=== PATIENT | female | born 1955 | race Caucasian/White ===

== ENCOUNTER → 2019-11-03 15:13 | Outpatient (BNVA) | payer MEDICARE, MEDICAID, SELFPAY | PROVIDERS: Family Provider Family Medicine; PCP Family Medicine; Visit Provider Podiatrist Foot & Ankle Surgery | DX: S99.921A Unspecified injury of right foot, initial encounter (principal); X58.XXXA Exposure to other specified factors, initial encounter; M20.41 Other hammer toe(s) (acquired), right foot | CPT/HCPCS: 73630 ==

== ENCOUNTER 2020-02-02 12:33 | Outpatient (CLI) | payer MEDICARE, MEDICAID, SELFPAY ==
--- NOTE | 2020-02-02 12:41 | XRR_ITS ---
PROCEDURE INFORMATION: Exam: XR Left Hip with Pelvis when Performed Exam date and time: 02/02/2020 12:43 PM Age: 64 years old Clinical indication: Hip pain; Left hip; Additional info: Left hip pain TECHNIQUE: Imaging protocol: XR Left hip with pelvis when performed. Views: 2 or 3 views. COMPARISON: No relevant prior studies available. FINDINGS: Bones/joints: No significant joint space narrowing. Femoral head contains normal round. Mild degenerative bony overgrowth greater trochanter, chronic. Soft tissues: Unremarkable. XR/XR hip LT 2-3V wo/w pel* [id number] IMPRESSION: No acute findings. Mild greater trochanter degenerative changes.
--- NOTE | 2020-02-02 12:41 | XRR_ITS ---
PROCEDURE INFORMATION: Exam: XR Left Knee Exam date and time: 02/02/2020 1:07 PM Age: 64 years old Clinical indication: Pain; Knee; Left; Additional info: Acute pain of left knee TECHNIQUE: Imaging protocol: XR Left knee. Views: 1 or 2 views. COMPARISON: MRI Knee w/o LEFT* [id number] 03/13/2018 3:18 PM FINDINGS: Bones/joints: No significant joint space narrowing. Mild tibial spine degenerative overgrowth. Superior patellar osteophyte. Soft tissues: Normal. XR/XR knee LT 1-2V [id number] IMPRESSION: Mild degenerative changes.
== END 2020-02-02 12:34 | disposition home or self-care (01) ==
LOC: RAD 12:38
PROVIDERS: PCP Family Medicine; Visit Provider Nurse Practitioner
DX: M25.552 Pain in left hip (principal); M25.562 Pain in left knee
CPT/HCPCS: 73502; 73560

== ENCOUNTER 2020-12-05 11:12 | Outpatient (CLI) | payer MEDICARE, MEDICAID, SELFPAY ==
--- NOTE | 2020-12-05 11:19 | XR_ITS ---
WS: [id number] LEFT FOOT: 3 VIEW(S) TECHNIQUE: AP, oblique and lateral. HISTORY: PAIN IN LEFT FOOT COMPARISON: None available. No acute fracture or dislocation. Severe narrowing with hypertrophic bone formation at the first metatarsophalangeal joint. Marked hype rtrophic bone formation with complete loss of the joint space. Erosions involving both sides of the f irst MTP joint. There is a single screw in the first metatarsal head. Prior ankylosis and hardware involving the second and third phalanges. Moderate size calcaneal spur. XR/XR foot LT min 3V* [id number] IMPRESSION: 1. Severe hypertrophic bone formation with loss of joint space at the first me tatarsophalangeal joint. 2. No acute fracture.
--- NOTE | 2020-12-05 11:19 | XR_ITS ---
WS: [id number] RIGHT HAND: 3 VIEW(S) TECHNIQUE: PA, oblique and lateral. HISTORY: PAIN IN RIGHT FINGER(S) THUMB COMPARISON: 04/13/2016 No acute fracture or dislocation. Severe interphalangeal joint space narrowing. Hypertrophic bone formation and joint space narrowing g reatest involving the distal interphalangeal joints. No erosions. Mild gullwing deformity involving t he second through fourth interphalangeal joints. Moderate osteoarthritis at the first CMC joint. Mild periostitis involving the phalanges, greatest involving the proximal fifth phalanx. XR/XR hand RT min 3V* [id number] IMPRESSION: 1. Advanced changes of interphalangeal joint space narrowing with gullwing def ormity. Consider advanced osteoarthritis and also psoriatic and erosive arthrit is. 2. No fracture.
== END 2020-12-05 11:13 | disposition home or self-care (01) ==
PROVIDERS: PCP Family Medicine; Visit Provider Nurse Practitioner Family
DX: M79.672 Pain in left foot (principal)
CPT/HCPCS: 73130; 73630

== ENCOUNTER → 2021-02-09 12:44 | Outpatient (BNVA) | payer MEDICARE, MEDICAID, SELFPAY | PROVIDERS: PCP Family Medicine; Visit Provider Internal Medicine | DX: M19.90 Unspecified osteoarthritis, unspecified site (principal); R21 Rash and other nonspecific skin eruption; Z11.59 Encounter for screening for other viral diseases; Z11.1 Encounter for screening for respiratory tuberculosis; Z79.899 Other long term (current) drug therapy | CPT/HCPCS: 99204 ==

== ENCOUNTER 2021-02-09 14:18 | Outpatient (CLI) | payer MEDICARE, MEDICAID, SELFPAY ==
--- NOTE | 2021-02-09 14:35 | XR_ITS ---
WS: [id number] Sacroiliac joints, 3 views, 02/09/2021 Clinical Data: L40.9 - Psoriasis, unspecified Comparison: None. Findings: The SI joints are normal in width. No erosion, sclerosis or destruction is seen. There are no fractur es or dislocations. The adjacent visualized pelvis and hips are unremarkable. XR/XR sacroiliac jts m 3V [id number] Impression: Negative SI joints.
[2021-02-09 15:50] LABS: Basophils # 0.1 10^3/uL (0.0-0.1); Basophils % 0.6 %; Eosinophils # 0.2 10^3/uL (0.0-0.8); Eosinophils % 1.6 %; Hemoglobin 14.9 g/dL (11.5-15.3); Lymphocytes # 3.3 10^3/uL (0.8-4.8); Lymphocytes % 32.8 %; Mean Corpuscular HGB Conc 32.4 g/dL (30.0-36.0); Mean Corpuscular Hemoglobin 28.9 pg (28.0-34.0); Mean Corpuscular Volume 89.3 fl (81-99); Mean Platelet Volume 10.8 fL (7.4-10.4); Monocytes # 0.9 10^3/uL (0.2-0.9); Monocytes % 8.4 %; Neutrophils % 56.3 %; Nucleated Red Blood Cells % 0 %; Platelet Count 258 10^3/cmm (130-400); Red Blood Count 5.15 10^6/uL (4.1-5.3); Red Cell Distribution Width 12.4 % (12.1-15.1); White Blood Count 10.1 10^3/uL (4.0-10.0)
[2021-02-09 16:24] LABS: Erythrocyte Sedimentation Rate 13 mm/hr (0-15)
[2021-02-09 16:42] LABS: C Reactive Protein 2.3 mg/L (0.0-4.9); Ferritin 74 ng/mL (15-150); Iron 59 ug/dL (37-145); Percent Saturation 16.5 % (20-50); Total Iron Binding Capacity 356 mcg/dl; Unsaturated Iron Binding 297 ug/dL (112-347)
[2021-02-09 16:55] LABS: Vitamin B12 390 pg/mL (232-1245)
[2021-02-09 16:57] LABS: Hepatitis B Core AB, Total Non-Reactive (Nonreactive); Hepatitis B Surface Antigen Non-Reactive (Nonreactive); Hepatitis C Virus Antibody Non-Reactive (Nonreactive)
[2021-02-09 21:15] LABS: Folate Level 4.9 ng/mL (4.8-37.3)
[2021-02-11 16:18] LABS: Quantiferon Mitogen >10.00 IU/mL; Quantiferon Nil 0.02 IU/mL; Quantiferon Plus TB1 0.01 IU/mL; Quantiferon Plus TB2 0.04 IU/mL; Quantiferon TB Gold NEGATIVE (NEGATIVE)
[2021-02-13 14:42] LABS: Cyclic Citrullinated Peptide <16 UNITS
== END 2021-02-09 14:19 | disposition home or self-care (01) ==
PROVIDERS: PCP Family Medicine; Visit Provider Internal Medicine
DX: L40.9 Psoriasis, unspecified (principal); M19.90 Unspecified osteoarthritis, unspecified site; D64.9 Anemia, unspecified; Z11.59 Encounter for screening for other viral diseases; Z11.1 Encounter for screening for respiratory tuberculosis
CPT/HCPCS: 36415; 72202; 82607; 82728; 82746; 83540; 83550; 85025; 85651; 86140; 86431; 86480; 86704; 86803; 87340

== ENCOUNTER → 2021-06-05 14:47 | Outpatient (BNVA) | payer MEDICARE, MEDICAID, SELFPAY | PROVIDERS: PCP Family Medicine; Visit Provider Internal Medicine | DX: M19.90 Unspecified osteoarthritis, unspecified site (principal); Z79.1 Long term (current) use of non-steroidal anti-inflammatories (NSAID) | CPT/HCPCS: 99213 ==

== ENCOUNTER 2022-04-03 07:13 | Emergency (ER) | payer MEDICARE, MEDICAID, SELFPAY ==
[2022-04-03 07:14] VITALS: BP 144/94; PULSE 70; RESP 16; TEMP 36.6; O2SAT 100; BMI 27.4
--- NOTE | 2022-04-03 07:16 | ECG_ITS ---
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 Measurements Intervals [place] Rate: 58 P: 75 [place]: 129 QRS: 55 QRSD: 114 T: 64 QT: 465 QTc: 459 Interpretive Statements SINUS BRADYCARDIA MODERATE INTRAVENTRICULAR CONDUCTION DELAY [110+ ms QRS DURATION] No previous ECG available for comparison Electronically Signed On 04-04-2022 8:28:34 CDT by Navid Montemayor M.D. [email or web address]
[2022-04-03 07:17] VITALS: BP 158/76; PULSE 51; O2SAT 94
--- NOTE | 2022-04-03 07:17 | W.ED.ABDPA2 ---
HPI - Abdominal Pain General: Chief Complaint: Abdominal Pain Stated Complaint: ABDOMINAL PAIN Time Seen by Provider: 04/03/22 07:15 Source: patient Mode of arrival: EMS History of Present Illness: 66-year-old female presents emergency room complaining of right lower quadrant pain that began this morning around 3 AM while she was having a bowel movement. Prior to that she had been fine she has been very nauseous she denies any hematochezia melena hematemesis or coffee-ground emesis. No dysuria urgency or frequency states she has chronic hematuria has not noticed any significant gross hematuria. No history of nephrolithiasis. Pain disproportionate to exam. MD elicited complaint: abdominal pain Pertinent past history: none Onset (ago): minute(s) Pain Consistency: constant Location: RLQ Severity: severe Quality: cramping and stabbing Radiation: none Migration to: no migration Exacerbating factors: nothing Relieving factors: nothing Associated Symptoms: Reports GI cramping and nausea; Denies anorexia, belching, bloating, change in bowel habits, change in stool character, chills, coffee ground emesis, constipation, diarrhea, dyspepsia, dysuria, excessive flatus, fever(s), heartburn, hematochezia, hematuria, hematemesis, fecal incontinence, loose stools, melena, poor appetite, syncope and vomiting Review of Systems Const: Denies: fever(s), chills, fatigue or malaise ENMT: Denies: throat pain, ear or mastoid pain, nasal discharge or nasal congestion Card: Denies: syncope Resp: Denies: dyspnea, productive cough or non-productive cough GI: Reports: abdominal pain, nausea and GI cramping; Denies: vomiting, hematemesis, coffee ground emesis, heartburn, diarrhea, constipation, bloating, belching, excessive flatus, fecal incontinence, change in bowel habits, change in stool character, hematochezia or melena : Denies: flank pain, difficulty voiding, dysuria, urinary frequency, urinary urgency or hematuria Skin/Breast: Denies: rash or pruritus PFSH ED PFSH: Medical History Joint pain Osteoarthritis Family History Father CHF (congestive heart failure) Cancer MELANOMA Social History Smoking and tobacco status: never smoked Alcohol intake: never Current occupational status: disabled History of recent travel: No Physical Exam Const: GENERAL APPEARANCE: cooperative and comfortable ORIENTATION/CONSCIOUSNESS: Yes awake, Yes oriented to person, Yes oriented to place and Yes oriented to time HENMT: COMMON NORMALS: normocephalic, atraumatic and hearing grossly normal bilaterally HEAD & SCALP: normocephalic and atraumatic Resp: COMMON NORMALS: normal respiratory effort, No retractions, No use of accessory muscles and clear to auscultation bilaterally AUSCULTATION: clear to auscultation bilaterally Cardio: COMMON NORMALS: regular rate, regular rhythm and No murmurs present (Cardio) RATE: regular rate RHYTHM: regular rhythm GI: COMMON NORMALS: No hepatosplenomegaly present AUSCULTATION: Yes normoactive bowel sounds PALPATION: Yes Tenderness to palpation present (GI) Details: RLQ, No Guarding due to palpation present (GI) and Yes No hepatosplenomegaly present OTHER: Tenderness with palpation but no pain with percussion in the right lower quadrant. Extremity: COMMON NORMALS: normal to inspection, capillary refill normal, no clubbing, cyanosis or edema, no calf tenderness and no pedal edema Neuro: SENSORIUM/ORIENTATION: Yes oriented to person, Yes oriented to place and Yes oriented to time Skin: COMMON NORMALS: no rashes or lesions noted GENERAL SKIN EXAM: no rashes or lesions noted Course Vital Signs: Vital signs: Vital Signs Temperature 97.9 F 04/03/22 07:14 Pulse Rate 74 04/03/22 08:43 Respiratory Rate 20 H 04/03/22 08:39 Blood Pressure 179/90 04/03/22 08:43 Pulse Oximetry 100 04/03/22 08:43 Oxygen Delivery Me thod 04/03/22 08:43 MDM - Abdominal Pain Medical Decision Making Patient presented with more right lower quadrant abdominal pain CT was ordered with contrast. It appeared to be a stone in the distal ureter however is difficult to trace the ureter. Dr. Jack asked that we repeat the scan with delayed images to allow for contrast to fill the ureter so would be easier to trace. Upon doing so the hydroureter seen on the first imaging has decreased the area of concern for still appears to allow free-flowing of contrast. [place] that she passed a stone clinically her pain is improved in the same timeframe. Most likely has passed the stone we will have her strain to collect and follow-up with urology. Medical Records I reviewed the patient's medical records. Lab Data I reviewed the patient's lab results. : 04/03/22 06:44 04/03/22 06:44 Labs/Radiology: Radiology Impressions Abdomen/Pelvis CT 04/03/22 07:24 IMPRESSION: 1. Mild RIGHT hydroureteronephrosis. Suspicious for stone in the mid to distal ureter. Delayed imaging was performed and calcification is no longer visualized and the hydronephrosis has improved. Suspect the patient passed a stone between the 2 CT evaluations. 2. Normal appendix. Notified Brennan Up DO at 04/03/2022 9:48 AM. Laboratory Results WBC 12.0 10^3/uL (4.0-10.0) H 04/03/22 06:44 RBC 5.47 10^6/uL (4.1-5.3) H 04/03/22 06:44 Hgb 16.2 g/dL (11.5-15.3) H 04/03/22 06:44 Hct 47.5 % (37.0-47.0) H 04/03/22 06:44 MCV 86.8 fl (81-99) 04/03/22 06:44 MCH 29.6 pg (28.0-34.0) 04/03/22 06:44 MCHC 34.1 g/dL (30.0-36.0) 04/03/22 06:44 RDW 12.4 % (12.1-15.1) 04/03/22 06:44 Plt Count 282 10^3/cmm (130-400) 04/03/22 06:44 MPV 10.9 fL (7.4-10.4) H 04/03/22 06:44 Neut % (Auto) 78.4 % 04/03/22 06:44 Lymph % (Auto) 14.6 % 04/03/22 06:44 [place] % (Auto) 5.8 % 04/03/22 06:44 Eos % (Auto) 0.3 % 04/03/22 06:44 Baso % (Auto) 0.5 % 04/03/22 06:44 Neut # (Auto) 9.41 10^3/uL (1.8-7.7) H 04/03/22 06:44 Lymph # (Auto) 1.8 10^3/uL (0.8-4.8) 04/03/22 06:44 [place] # (Auto) 0.7 10^3/uL (0.2-0.9) 04/03/22 06:44 Eos # (Auto) 0.0 10^3/uL (0.0-0.8) 04/03/22 06:44 Baso # (Auto) 0.1 10^3/uL (0.0-0.1) 04/03/22 06:44 Nucleated RBC % (auto) 0 % 04/03/22 06:44 Nucleated RBCs # 0.0 /100WBC 04/03/22 06:44 Sodium 139 mmol/L (136-145) 04/03/22 06:44 Potassium 3.6 mmol/L (3.5-5.1) 04/03/22 06:44 Chloride 100 mmol/L (98-107) 04/03/22 06:44 Carbon Dioxide 21 mmol/L (22-29) L 04/03/22 06:44 Anion Gap 21.6 (5-19) H 04/03/22 06:44 BUN 19 mg/dL (8-23) 04/03/22 06:44 Creatinine 1.0 mg/dL (0.5-0.9) H 04/03/22 06:44 GFR Calculation 55.8 mL/min (90-130) L 04/03/22 06:44 Glucose 163 mg/dL (65-115) H 04/03/22 06:44 Calculated Osmolality 294 mOsm/kg (285-295) 04/03/22 06:44 Calcium 10.4 mg/dL (8.5-10.5) 04/03/22 06:44 Total Bilirubin 0.5 mg/dL (0.15-1.2) 04/03/22 06:44 AST 18 U/L (0-32) 04/03/22 06:44 ALT 17 U/L (0-33) 04/03/22 06:44 Alkaline Phosphatase 77 U/L (35-105) 04/03/22 06:44 Total Protein 7.7 g/dL (6.6-8.7) 04/03/22 06:44 Albumin 4.7 g/dL (3.5-5.2) 04/03/22 06:44 Globulin 3.0 g/dL (1.3-4.6) 04/03/22 06:44 Lipase 50 U/L (13-60) 04/03/22 06:44 Urine Color Yellow (Yellow) 04/03/22 07:38 Urine Appearance Sl hazy (CLEAR) A 04/03/22 07:38 Urine pH 9 (5-7) H 04/03/22 07:38 Ur Specific [place] 1.015 (1.005-1.030) 04/03/22 07:38 Urine Protein Neg (Negative) 04/03/22 07:38 Urine Glucose (UA) Norm (Normal) 04/03/22 07:38 Urine Ketones 2+ (Negative) H 04/03/22 07:38 Urine Blood 3+ (Negative) H 04/03/22 07:38 Urine Nitrate Negative (Negative) 04/03/22 07:38 Urine Bilirubin Neg (Negative) 04/03/22 07:38 Prot Sulfosalicylic Acd Negative (Negative) 04/03/22 07:38 Urine Urobilinogen Norm mg/dL (Negative) 04/03/22 07:38 Ur Leukocyte Esterase Negative (Negative) 04/03/22 07:38 Urine RBC 15-25 /hpf (0-2) H 04/03/22 07:38 Urine WBC 0-4 /hpf (0-5) H 04/03/22 07:38 Ur Squamous Epith Cells 5-10 /hpf (0-5) H 04/03/22 07:38 Calcium Oxalate Crystal 0-4 /hpf H 04/03/22 07:38 Amorphous Sediment Not Reportable 04/03/22 07:38 Urine Bacteria Trace /hpf (NONE) 04/03/22 07:38 Urine Mucus Trace /hpf 04/03/22 07:38 Discharge Plan Discharge Patient Disposition: Home Clinical Impression: Nephrolithiasis Condition: Stable Prescriptions: New hydrocodone-acetaminophen 5-325 mg tablet 1 tab PO Q6H PRN (Reason: pain) Qty: 10 0RF No Action sertraline 25 mg tablet 25 mg PO DAILY alprazolam 0.25 mg tablet 0.5 mg PO DAILY Label Comments: 2 daily as needed diclofenac sodium [Voltaren Arthritis Pain] 1 % gel 2 g topical QID Qty: 100 1RF Rx Instructions: apply to single elbow, wrist or hand; for hand includes palm/fingers/back of hand metformin 500 mg tablet 500 mg PO BID lovastatin 20 mg tablet 20 mg PO DAILY valsartan 40 mg tablet 40 mg PO DAILY vitamin B complex [B Complex-Vitamin B12] Tablet 1 tab PO DAILY calcium carbonate [Calcium 600] 600 mg calcium (1,500 mg) tablet 600 mg PO DAILY omega-3 fatty acids [Fish Oil Concentrate] 1,000 mg capsule 1,000 mg PO DAILY biotin 5 mg capsule 5 mg PO DAILY hydroxychloroquine 200 mg tablet 200 mg PO BID Qty: 60 3RF prednisone 5 mg tablet See Rx Instructions PO .COMPLEX PRN (Reason: flare) Qty: 60 1RF Rx Instructions: 1-2 tablets PO PRN; Discharge Orders: Discharge ED (Routine); Ordered 04/03/22 Ordered By: Brennan Up Referrals: Anshul Patel Jr, MD [Primary Care Provider] - Discharge Diet: Usual diet Discharge Activity: Resume usual activity Patient Instructions: Opioid Safety, Pain Management Activity Restrictions/Additional Instructions: Strain urine to collect stone and submit for pathology Case management make arrangements for follow-up with urology Coding Level of Care Code ED Decision Support Analyst for Chg Fwd Exam Detailed
--- NOTE | 2022-04-03 07:24 | CT_ITS ---
WS: [id number] CT ABDOMEN AND PELVIS WITH CONTRAST HISTORY: RIGHT lower quadrant pain. TECHNIQUE: Imaging performed of the abdomen and pelvis with IV contrast. Single phase imaging of the abdomen. Coronal and sagittal reformats are submitted. All CT scans at [facility] use at [address] one of these dose optimization techniques: automated exposure control; mA and/or kV adjustment per patient size (includes targeted exams where dose is matched to clinical indication); or iterative re construction. IV CONTRAST: Omnipaque 350; 100 mL IV. Oral contrast: No DLP: 646.27 mGy.cm COMPARISON: 02/11/2008 Lower thorax: Lung bases are clear. Heart is normal size. Small hiatal hernia. Liver/biliary system: Normal size with no intrahepatic dilatation. Normal portal vein. Gallbladder: Normal. No gallstones or wall thickening. No pericholecystic fluid. Pancreas: Normal size pancreas and pancreatic duct. No adjacent inflammation. Spleen: Normal size spleen. No mass or infarct. Adrenal glands: Normal. Right kidney: Mild hydronephrosis and hydroureter the RIGHT kidney. There is periureteral stranding a nd enhancement within the wall of the ureter. Delayed imaging was obtained to evaluate the course of the ureter better. On the delayed imaging the hydronephrosis decreased and neck calcification thought to be in the ureter is no longer present. Left kidney: Cortical hypodensities are too small to characterize. Small parapelvic cysts. No renal o bstruction. Aorta: Mild atherosclerosis with no aneurysm. Lymphadenopathy: None. Free fluid: None. GI tract: Nondistended stomach. No wall thickening. No small bowel obstruction. The appendix is ident ified and normal. Numerous diverticula within the descending and sigmoid colon. No evidence for acute diverticulitis. Abdominal wall: Unremarkable abdominal wall. No hernia. Pelvis: No free fluid or adenopathy within the pelvis. Bones: Mild anterior wedging of L1. Facet joint arthritis bilaterally. CT/CT abdomen pelvis w con* [id number] IMPRESSION: 1. Mild RIGHT hydroureteronephrosis. Suspicious for stone in the mid to distal ureter. Delayed imaging was performed and calcification is no longer visualize d and the hydronephrosis has improved. Suspect the patient passed a stone betwe en the 2 CT evaluations. 2. Normal appendix. Notified Brennan Up DO at 04/03/2022 9:48 AM.
[2022-04-03 07:27] LABS: Basophils # 0.1 10^3/uL (0.0-0.1); Basophils % 0.5 %; Eosinophils % 0.3 %; Hematocrit 47.5 % (37.0-47.0); Hemoglobin 16.2 g/dL (11.5-15.3); Lymphocytes # 1.8 10^3/uL (0.8-4.8); Lymphocytes % 14.6 %; Mean Corpuscular HGB Conc 34.1 g/dL (30.0-36.0); Mean Corpuscular Hemoglobin 29.6 pg (28.0-34.0); Mean Corpuscular Volume 86.8 fl (81-99); Mean Platelet Volume 10.9 fL (7.4-10.4); Monocytes # 0.7 10^3/uL (0.2-0.9); Monocytes % 5.8 %; Neutrophils # 9.41 10^3/uL (1.8-7.7); Neutrophils % 78.4 %; Nucleated Red Blood Cells % 0 %; Platelet Count 282 10^3/cmm (130-400); Red Blood Count 5.47 10^6/uL (4.1-5.3); Red Cell Distribution Width 12.4 % (12.1-15.1)
[2022-04-03 07:38] VITALS: RESP 25; O2SAT 100
[2022-04-03] MEDS: morphine 4 mg/mL SDV 1 mL IVP ×2 (07:38→08:39)
[2022-04-03] MEDS: sodium chloride 0.9% 1,000 ML 999 ML IV (07:38)
[2022-04-03] MEDS: ondansetron 2 mg/ML SDV 2 mL 4 MG IVP (07:39)
[2022-04-03 07:48] VITALS: PULSE 50; O2SAT 93
[2022-04-03 07:50] LABS: Alanine Aminotransferase 17 U/L (0-33); Albumin Level 4.7 g/dL (3.5-5.2); Alkaline Phosphatase 77 U/L (35-105); Anion Gap 21.6 (5-19); Aspartate Amino Transferase 18 U/L (0-32); Blood Urea Nitrogen 19 mg/dL (8-23); Calcium 10.4 mg/dL (8.5-10.5); Carbon Dioxide 21 mmol/L (22-29); Chloride 100 mmol/L (98-107); Glomerular Filtration Rate 55.8 mL/min (90-130); Glucose 163 mg/dL (65-115); Lipase 50 U/L (13-60); Osmolality Calculated 294 mOsm/kg (285-295); Potassium 3.6 mmol/L (3.5-5.1); Sodium 139 mmol/L (136-145); Total Bilirubin 0.5 mg/dL (0.15-1.2); Total Protein 7.7 g/dL (6.6-8.7)
[2022-04-03] MEDS: iohexol 350 mg/mL 100 mL Btl IV (08:09)
[2022-04-03 08:13] LABS: Add Urine Microscopic? YES; Bilirubin Urine Neg (Negative); Blood Urine 3+ (Negative); Glucose Urine UA Norm (Normal); Ketones Urine 2+ (Negative); Leukocyte Esterase Urine Negative (Negative); Nitrate Urine Negative (Negative); Protein Urine Neg (Negative); Specific Gravity, Urine 1.015 (1.005-1.030); Sulfosalicylic Acid Urine Negative (Negative); Urine Appearance SL Hazy (CLEAR); Urine Color Yellow (Yellow); Urobilinogen Urine Norm (Negative); pH Urine 9 (5-7)
[2022-04-03 08:14] LABS: Add Urine Culture? Yes; Bacteria Urine TRACE /hpf; Calcium Oxalate Crystals Urine 0-4 /hpf; Mucus Urine TRACE /hpf; RBC Urine 15-25 /hpf (0-2); WBC Urine 0-4 /hpf (0-5)
[2022-04-03 08:39] VITALS: RESP 20
[2022-04-03 08:43] VITALS: BP 179/90; PULSE 74; O2SAT 100
--- NOTE | 2022-04-03 10:30 | DCPLANNER ---
Addendum entered by Rea Turner 06/13/22 11:21: This appointment was cancelled Addendum entered by Rea Turner 04/05/22 15:01: Patient has a follow up appointment scheduled for Saturday, April 11, 2022 at 3:30 with Hayde Kan at urology. Clinic will call patient with appointment information. Original Note: household manager had message to schedule a follow up appointment for patient with urology. household manager sent patients information to the front office staff at urology. Patients information will be printed and reviewed. Clinic will call patient with appointment information.
== END 2022-04-03 10:45 | disposition home or self-care (01) ==
PROVIDERS: Emergency Provider Family Medicine; PCP Family Medicine
DX: N20.0 Calculus of kidney (principal); Z79.84 Long term (current) use of oral hypoglycemic drugs
CPT/HCPCS: 74177; 80053; 81001; 83690; 85025; 87086; 93005; 96361; 96374; 96375; 96376; 99285; J2270; J2405; J7030; Q9967

== ENCOUNTER 2022-07-26 09:43 | Outpatient (CLI) | payer MEDICARE, MEDICAID, SELFPAY ==
--- NOTE | 2022-07-26 09:51 | MM_ITS ---
WS: [id number] BILATERAL SCREENING DIGITAL TOMOSYNTHESIS MAMMOGRAM WITH CAD HISTORY: SCREENING COMPARISON: 04/16/2014 Bilateral CC and MLO views with tomosynthesis and synthetic mammography submitted. Computer aided det ection analyzed. Breast composition: The breasts are heterogeneously dense, which may obscure small masses. No suspici ous masses, microcalcifications or architectural distortion. Benign calcifications in each breast. MM/[place] [id number] IMPRESSION: BI-RADS: 2-Benign FOLLOW UP: 1 Year Follow-up
== END 2022-07-26 09:44 | disposition home or self-care (01) ==
LOC: RAD 09:43
PROVIDERS: PCP Nurse Practitioner Family; Visit Provider Nurse Practitioner Family
DX: Z12.31 Encounter for screening mammogram for malignant neoplasm of breast (principal)
CPT/HCPCS: 77063; 77067

== ENCOUNTER → 2025-02-03 13:10 | Outpatient (BNVA) | payer MEDICARE, SELFPAY | PROVIDERS: PCP Nurse Practitioner Family; Visit Provider Podiatrist Foot & Ankle Surgery | DX: M79.671 Pain in right foot (principal); M79.672 Pain in left foot; M21.621 Bunionette of right foot; M21.622 Bunionette of left foot; M21.611 Bunion of right foot; M21.612 Bunion of left foot; M19.071 Primary osteoarthritis, right ankle and foot; M19.072 Primary osteoarthritis, left ankle and foot | CPT/HCPCS: 73630; 99204 ==

== ENCOUNTER → 2025-04-14 14:21 | Outpatient (BNVA) | payer MEDICARE, SELFPAY | PROVIDERS: PCP Nurse Practitioner Family; Visit Provider Podiatrist Foot & Ankle Surgery | DX: M21.621 Bunionette of right foot (principal); M21.622 Bunionette of left foot; M21.611 Bunion of right foot; M21.612 Bunion of left foot; M19.071 Primary osteoarthritis, right ankle and foot; M19.072 Primary osteoarthritis, left ankle and foot | CPT/HCPCS: 99213 ==